=== PATIENT | female | born 1970 | race Caucasian/White ===

== ENCOUNTER 2025-02-18 07:27 | Outpatient (CLI) | payer OTHER | END 2025-02-18 07:28 | disposition home or self-care (01) | LOC: SCSMRI 07:27 | PROVIDERS: ATTEND Nurse Practitioner Family | DX: M51.16 Intervertebral disc disorders with radiculopathy, lumbar region (principal); M47.26 Other spondylosis with radiculopathy, lumbar region | CPT/HCPCS: 72148 ==